=== PATIENT | male | born 2005 | race Two or more races ===

== ENCOUNTER 2025-04-23 03:47 | Emergency (ER) | payer OTHER ==
[~2025-04-23] VITALS: Ht 188 cm; Wt 68.0 kg
[2025-04-23 04:22] LABS: BASO % 0.5 % (0.1-1.2); EOS # 0.07 (0.04-0.54); EOS % 0.8 % (0.7-7.0); LYMPH # 1.52 (1.18-3.74); LYMPH % 18.3 % (19.3-53.1); MEAN PLATELET VOLUME 10.70 fl (9.4-12.4); MONO # 0.71 (0.24-0.82); MONO % 8.6 % (4.7-12.5); NEUT # 5.94 (1.56-6.13); NEUT % 71.7 % (34.0-71.1); RED CELL DISTRIBUTION WIDTH 12.6 % (11.6-14.4)
[2025-04-23 04:57] LABS: BUN CREA RATIO 18.0 (7.0-25.0); CREATININE SERUM 0.85 mg/dL (0.70-1.30); GFR 112.71; GLUCOSE FASTING 95.0 mg/dL (65-100); OSMOLALITY SERUM 287.0 MOSM/KG (275-295)
[2025-04-23] MEDS ORDERED: HYDROXYZINE PAM50 MG PO (05:59)
== END 2025-04-23 06:11 ==
LOC: ER 03:47
PROVIDERS: General Practice
DX: F41.1 Generalized anxiety disorder (principal)